=== PATIENT | female | born 2000 ===

== ENCOUNTER 2020-10-26 12:08 | Outpatient (REF) | payer SELFPAY ==
[2020-10-26 12:52] LABS: Cholesterol 171 mg/dL
== END 2020-10-26 12:09 | disposition home or self-care (01) ==
LOC: HO.LNC 12:08
PROVIDERS: Visit Provider Pathology Anatomic Pathology & Clinical Pathology
DX: Z13.89 Encounter for screening for other disorder (principal)
CPT/HCPCS: 36415; 82465